=== PATIENT | male | born 1990 | race Caucasian/White ===

== ENCOUNTER 2021-03-14 20:41 | Emergency (ER) | payer OTHER | END 2021-03-14 23:30 | disposition home or self-care (01) | LOC: ER1 20:41 | PROVIDERS: Family Medicine | DX: S73.101A Unspecified sprain of right hip, initial encounter (principal); V49.9XXA Car occupant (driver) (passenger) injured in unspecified traffic accident, initial encounter; Y92.410 Unspecified street and highway as the place of occurrence of the external cause | CPT/HCPCS: 70450; 71045; 72170; 73552; 80307; 99284 ==